=== PATIENT | male | born 1955 | race Caucasian/White ===

== ENCOUNTER 2020-01-20 08:53 | Emergency (ER) | payer BC, OTHER, SELFPAY ==
[2020-01-20 09:24] LABS: Bilirubin Negative (Negative); Blood, Urine Large (Negative); Clarity Turbid (Clear); Glucose, Urine (Dipstick) Negative (Negative); Leukocyte Large (Negative); Nitrite Negative (Negative); Protein, Urine (Dipstick) > or equal to 300 mg/dL (Neg-Trace); Urobilinogen 0.2 mg/dL (Less than 2)
[2020-01-20 09:26] LABS: Bacteria/HPF 2+ HPF (None Seen); Squamous Epithelial 0-3 HPF (0-3); WBC/HPF Greater than 50 HPF (0-3)
[2020-01-20] MEDS ORDERED: Lidocaine Viscous Sol 2% 15 ml UD Cup ONE (09:31)
[2020-01-20] MEDS ORDERED: Lidocaine 1% PF 5 ML VIAL ONE (09:31)
[2020-01-20] MEDS ORDERED: cefTRIAXone\\ROCEPHIN 1 GM VIAL ONE (09:31)
== END 2020-01-20 10:07 | disposition home or self-care (01) ==
LOC: BURERS 08:53
DX: N99.89 Other postprocedural complications and disorders of genitourinary system (principal); N39.0 Urinary tract infection, site not specified
CPT/HCPCS: 51702; 81003; 81015; 87077; 87086; 87186; 96372; J0696; J2001